=== PATIENT | female | born 1950 ===

== ENCOUNTER 2018-07-21 07:27 | Day surgery (SDC) | payer OTHER ==
[2018-07-21] MEDS ORDERED: Lactated Ringer's 500 ML IV ONE (07:46)
[2018-07-21] MEDS ORDERED: Propofol 10 mg/ml Inj (20 ML) ONE (09:27)
[2018-07-21 10:12] VITALS: BP 120/68; PULSE 52; RESP 18; TEMP 97; O2SAT 100
== END 2018-07-21 10:39 | disposition home or self-care (01) ==
LOC: H.ENDO 07:27
PROVIDERS: ATTEND Internal Medicine Gastroenterology
DX: K30 Functional dyspepsia (principal); K31.89 Other diseases of stomach and duodenum; I25.10 Atherosclerotic heart disease of native coronary artery without angina pectoris; J45.909 Unspecified asthma, uncomplicated; E11.9 Type 2 diabetes mellitus without complications; I10 Essential (primary) hypertension
CPT/HCPCS: 43239; 82948; 88305; J2704; J7120